=== PATIENT | male | born 1995 | race Caucasian/White ===

== ENCOUNTER 2016-09-17 13:55 | Emergency (ER) | payer OTHER ==
[~2016-09-17] VITALS: Ht 182.9 cm; Wt 112.5 kg
[~2016-09-17 13:55] MED LIST: IBUP400T22 PO; NPH10OT LEFT EAR
[2016-09-17 14:06] VITALS: Ht 182.9 cm; Wt 112.5 kg
[2016-09-17] MEDS ORDERED: ONDANSETRON (ODT) 4 MG TAB ODT STA (14:34)
[2016-09-17] MEDS ORDERED: FAMOTIDINE 20 MG TAB PO ONE (15:00)
[2016-09-17] MEDS ORDERED: ONDA4TAB14 PO (15:08)
[2016-09-17] MEDS ORDERED: FAMO-96 PO (15:08)
[2016-09-17] MEDS ORDERED: BEN25 PO (15:08)
--- NOTE | 2016-09-17 15:28 | ERD ---
ER Documentation Chief Complaint Date/Time DATE: 09/17/16 TIME: 15:26 Chief Complaint NAUSEA VOMITING W/ EVERY MEAL X2DAYS HPI 21-year-old male patient with no significant past medical history presents to the ED complaining of a dry cough that started 2 days ago. Reports that he has some nausea and had 4 episodes of nonbilious nonbloody vomiting. States that he is unable to hold down the food that he is eating. Denies any chest pain, shortness of breath, wheezing, abdominal pain, diarrhea, constipation, scrotal pain, dysuria. Denies any sick contacts. ROS All systems reviewed and are negative except as per history of present illness. Medications Home Meds Active Scripts Diphenhydramine Hcl* (Benadryl*) 25 Mg Cap, 25 MG PO Q6, #20 CAP Prov:BC DENNIS PA-C 09/17/16 Famotidine* (Pepcid*) 20 Mg Tablet, 20 MG PO BID for 4 Days, TAB Prov:BC DENNIS PA-C 09/17/16 Ondansetron (Ondansetron Odt) 4 Mg Tab.rapdis, 4 MG PO Q6H Y for NAUSEA AND/OR VOMITING, #10 TAB Prov:BC DENNIS PA-C 09/17/16 Ibuprofen* (Motrin*) 400 Mg Tab, 400 MG PO Q6H Y for PAIN AND OR ELEVATED TEMP, #30 Prov:JAROD STARK NP 08/17/14 Neomycin/Polymyxin/Hydrocort* (Cortisporin* Otic) 10 Ml Susp, 4 DROP LEFT EAR QID for 7 Days, EA Prov:JAROD STARK NP 08/17/14 Allergies Allergies: Coded Allergies: No Known Allergy (Unverified , 08/17/14) PMhx/Soc Medical and Surgical Hx: pt denies Medical Hx, pt denies Surgical Hx History of Surgery: Yes (HERNIA ) Anesthesia Reaction: No Hx Neurological Disorder: No Hx Respiratory Disorders: No Hx Cardiac Disorders: No Hx Psychiatric Problems: No Hx Miscellaneous Medical Probl: No Hx Alcohol Use: No Hx Substance Use: No Hx Tobacco Use: No Smoking Status: Never smoker Physical Exam Vitals Vital Signs Date Time Temp Pulse Resp B/P Pulse Ox O2 Delivery O2 Flow Rate FiO2 09/17/16 14:06 97.8 86 20 157/88 98 Physical Exam Const: [id number]-qxy-mozjweaum, well-nourished. In no acute distress. Head: Atraumatic, normocephalic Eyes: Normal Conjunctiva without injection. No purulent discharge. ENT: Normal external ear, nose. Moist oropharynx without tonsillar exudates. Non -erythematous pharynx. Uvula midline. No drooling. No trismus. Neck: No cervical midline tenderness. Full range of motion. No meningismus. No cervical lymphadenopathy. No JVD. Resp: Clear to auscultation bilaterally. No wheezing, rhonchi, rales, or crackles. No accessory muscle use. No retractions. Cardio: Regular rate and rhythm. No murmurs, rubs or gallops. Abd: Soft, no abdominal tenderness, non distended. Normal bowel sounds. No palpable masses. No rebound tenderness. No guarding. Negative McBurney's point. Negative psoas sign. Negative obturator sign. Skin: No petechiae or rashes Back: No midline tenderness. No CVA tenderness. Ext: No cyanosis, or edema. Neur: Awake and alert. Normal gait. Normal coordination. Psych: Normal Mood and Affect Results 24 hrs Current Medications Medications (Trade) Dose Ordered Sig/Caleb Route PRN Reason Start Time Stop Time Status Last Admin Dose Admin Famotidine (Pepcid) 20 mg ONCE ONCE PO 09/17/16 15:00 09/17/16 15:01 DC 09/17/16 14:40 Ondansetron HCl (Zofran Odt) 4 mg ONCE STAT ODT 09/17/16 14:34 09/17/16 14:35 DC 09/17/16 14:40 Procedures/MDM This is a 21-year-old male patient with no significant past medical history presents to the ED complaining of cough, vomiting. Patient is afebrile and nontoxic-appearing. Patient has normal vital signs. Patient was given Zofran and famotidine with improvement of his symptoms. Patient tolerated oral intake. Patient did not vomit here in the ED. patient symptoms are likely due to viral etiology. Patient is afebrile and has normal vital signs. Patient's physical exam include lungs which were clear to auscultation and a normal pulse oximetry. There is a low suspicion for pneumonia, pneumothorax, mononucleosis, pulmonary embolism, epiglottitis, otitis media, otitis externa, viral/strep pharyngitis, sinusitis, peritonsillar abscess, mastoiditis, retropharyngeal abscess, meningitis, sepsis, acute abdomen or other emergent conditions. Fluids , rest, and symptomatic treatment are recommended for the management of patient' s symptoms. Discharge medications: Benadryl, Famotidine, Zofran Patient was instructed to return to the ED for any new or worsening symptoms. They should otherwise follow up with the primary care provider within 1-2 days. The patient's questions were answered at the time of discharge. Patient understood and agreed with discharge management. Departure Diagnosis: Primary Impression: Cough Additional Impression: Nausea and vomiting Vomiting type: unspecified Vomiting Intractability: unspecified Qualified Code: R11.2 - Nausea and vomiting, intractability of vomiting not specified, unspecified vomiting type Condition: Stable Patient Instructions: Viral Syndrome (Adult) Referrals: [facility] YOU HAVE RECEIVED A MEDICAL SCREENING EXAM AND THE RESULTS INDICATE THAT YOU DO NOT HAVE A CONDITION THAT REQUIRES URGENT TREATMENT IN THE EMERGENCY DEPARTMENT. FURTHER EVALUATION AND TREATMENT OF YOUR CONDITION CAN WAIT UNTIL YOU ARE SEEN IN YOUR DOCTORS OFFICE WITHIN THE NEXT 1-2 DAYS. IT IS YOUR RESPONSIBILITY TO MAKE AN APPOINTMENT FOR FOLOW-UP CARE. IF YOU HAVE A PRIMARY DOCTOR --you should call your primary doctor and schedule an appointment IF YOU DO NOT HAVE A PRIMARY DOCTOR YOU CAN CALL OUR PHYSICIAN REFERRAL HOTLINE AT IF YOU CAN NOT AFFORD TO SEE A PHYSICIAN YOU CAN CHOSE FROM THE FOLLOWING [facility] CL[facility] [address] [facility] [address] [facility] [facility] [address] [facility] [address] [facility] [address] [facility]. [facility]. [address] [facility]. [facility] YOU HAVE RECEIVED A MEDICAL SCREENING EXAM AND THE RESULTS INDICATE THAT YOU DO NOT HAVE A CONDITION THAT REQUIRES URGENT TREATMENT IN THE EMERGENCY DEPARTMENT. FURTHER EVALUATION AND TREATMENT OF YOUR CONDITION CAN WAIT UNTIL YOU ARE SEEN IN YOUR DOCTORS OFFICE WITHIN THE NEXT 1-2 DAYS. IT IS YOUR RESPONSIBILITY TO MAKE AN APPOINTMENT FOR FOLOW-UP CARE. IF YOU HAVE A PRIMARY DOCTOR --you should call your primary doctor and schedule and appointment IF YOU DO NOT HAVE A PRIMARY DOCTOR YOU CAN CALL OUR PHYSICIAN REFERRAL HOTLINE AT . IF YOU CAN NOT AFFORD TO SEE A PHYSICIAN YOU CAN CHOSE FROM THE FOLLOWING [facility]: [facility] [address] [place] [address] [facility] [address] [place] [address] [facility] [address] [place] [address] [facility]RGENT [facility]/SPECIALTIES Additional Instructions: Call your primary care doctor for an appointment during the next 2-3 days.See the doctor sooner or return here if your condition worsens before your appointment time. BC DENNIS PA-C Sep 17, 2016 15:28 BC DENNIS PA-C Sep 17, 2016 15:28
== END 2016-09-17 15:30 | disposition home or self-care (01) ==
LOC: FTE 13:55
DX: R05 Cough (principal)
CPT/HCPCS: Z7610 ×2; 99283

== ENCOUNTER 2017-03-29 14:35 | Emergency (ER) | END 2017-03-29 15:26 | disposition home or self-care (01) ==

== ENCOUNTER 2018-02-20 16:25 | Emergency (ER) | END 2018-02-20 20:48 | disposition home or self-care (01) ==